=== PATIENT | male | born 1965 | race Caucasian/White ===

== ENCOUNTER 2022-05-17 08:14 | Outpatient (CLI) | payer BC, SELFPAY ==
--- NOTE | ~2022-05-17 | US_ITS ---
US arterial ankle brachial ind INDICATION: Peripheral vascular disease TECHNIQUE: Segmental pressures and plethysmographic and Doppler waveforms of the brachial and lower e xtremity arteries were obtained. COMPARISON: None. FINDINGS: Right and left brachial artery pressures of 125 mm Hg and 144 mm Hg, respectively, are concordant (no rmal difference <= 30 mmHg). The right ankle-brachial index (ADELSO) is 1.06 (normal >= 0.9-1.0). The right great toe-brachial index (TBI) is 0.72 (normal >= 0.60). The left ADELSO is 1.09. The left TBI is 0.87. IMPRESSION: 1. Normal bilateral ankle and toe brachial indices. Reviewed, dictated and finalized at location A.
== END 2022-05-17 08:15 | disposition home or self-care (01) ==
PROVIDERS: PCP Family Medicine; Visit Provider Family Medicine
DX: I73.9 Peripheral vascular disease, unspecified (principal)
CPT/HCPCS: 93922